=== PATIENT | male | born 1995 | race Caucasian/White ===

== ENCOUNTER 2018-06-21 20:39 | Emergency (ER) | payer BC, OTHER ==
--- NOTE | 2018-06-21 20:44 | PDOC ---
Rapid Medical Evaluation Time Seen by Provider: 06/21/18 20:43 Medical Evaluation: 06/21/18 20:43 I have performed a brief in-person evaluation of this patient. The patient presents with a chief complaint of: pleuritic chest pain Pertinent physical exam findings: Lungs CTAB. I have ordered the following: CXR The patient will proceed to the ED for further evaluation. Discharge Disposition - Diagnosis Pleuritic chest pain - Referrals - Patient Instructions - Post Discharge Activity
[2018-06-21 20:46] VITALS: BP 139/70; PULSE 114; TEMP 100.5; BMI 29.2
[2018-06-21] MEDS ORDERED: ACETAMINOPHEN 500 MG TABLET (FP) PO ONE (20:55)
[2018-06-21] MEDS ORDERED: ACETAMINOPHEN 500 MG TABLET (FP) ONE (20:58)
--- NOTE | 2018-06-21 21:14 | PDOC ---
History of Present Illness - General Chief Complaint: Cold Symptoms Stated Complaint: FLU/ASTHMA Time Seen by Provider: 06/21/18 20:43 - History of Present Illness Initial Comments: 06/21/18 21:07 23-year-old male without comorbidities presents for evaluation of cough. He was treated for influenza he is on the third day of a 5 day course of Tamiflu. His cough is getting worse he also has fever at home Past History - Past Medical History Allergies/Adverse Reactions: Allergies Allergy/AdvReac Type Severity Reaction Status Date / Time No Known Allergies Allergy Verified 06/21/18 20:46 Home Medications: Ambulatory Orders Azithromycin [Zithromax -] 250 mg PO UTDICT #6 tab 06/21/18 Methylprednisolone [Medrol Dose Bridger] 4 mg PO ASDIR #21 tablet 06/21/18 Asthma: Yes Cardiac Disorders: Yes COPD: No Other medical history: cyst - Suicide/Smoking/Psychosocial Hx Smoking History: Never smoked Have you smoked in the past 12 months: No Information on smoking cessation initiated: No Hx Alcohol Use: No Drug/Substance Use Hx: No Substance Use Type: None Review of Systems - Review of Systems Constitutional: Yes: Fever, Malaise, Night Sweats Respiratory: Yes: Cough *Physical Exam - Vital Signs Last Vital Signs Temp Pulse Resp BP Pulse Ox 100.5 F H 114 H 21 H 139/70 96 06/21/18 20:44 06/21/18 20:44 06/21/18 20:44 06/21/18 20:44 06/21/18 20:44 - Physical Exam Comments: 06/21/18 21:07 HEAD: NC/AT EYES: Conjuntiva clear NECK: Supple without adenopathy CARDIAC: S1 S2 LUNGS: Clear decreased breath sounds at the right base ABDOMEN: Soft NT ND MS: Full ROM in all joints without edema NEUROLOGIC: No gross sensory or motor deficits, NVID SKIN: Normal color and temperature no lesions or rashes ED Treatment Course - Medications Given in the ED: ED Medications Discontinued Medications Generic Name Dose Route Start Last Admin Trade Name Freq PRN Reason Stop Dose Admin Acetaminophen 1,000 mg 06/21/18 20:55 06/21/18 20:59 Tylenol - PO 06/21/18 20:56 1,000 mg ONCE ONE Administration Medical Decision Making - Medical Decision Making 06/21/18 21:08 Chest x-ray shows a right lower lobe infiltrate possibly left lower lobe infiltrate as well I will treat him for pneumonia cover mycoplasma with Zithromax and place him on a Medrol Dosepak. He can continue the Tamiflu as well *DC/Admit/Observation/Transfer Diagnosis at time of Disposition: Pneumonia Diagnosis at time of Disposition: (Ruled Out): Pleuritic chest pain - Discharge Dispostion Disposition: HOME Condition at time of disposition: Stable Decision to Admit order: No - Prescriptions Prescriptions: Azithromycin [Zithromax -] 250 mg PO UTDICT #6 tab Methylprednisolone [Medrol Dose Bridger] 4 mg PO ASDIR #21 tablet - Referrals Referrals: Tal Perdue MD [Staff Physician] - - Patient Instructions Printed Discharge Instructions: DI for Atypical Pneumonia, DI for Pneumonia -- Adult Additional Instructions: Continue to Tamiflu as directed. Take the antibiotics and the Medrol Dosepak as directed as well. Follow-up with pulmonology in 2-3 days for further evaluation and treatment options and return to the emergency room should symptoms worsen or go unresolved. Continue with Tylenol and Motrin for fever [id number] Robitussin-DM for cough - Post Discharge Activity
== END 2018-06-21 21:14 | disposition home or self-care (01) ==
LOC: JERFT 20:39
DX: J18.9 Pneumonia, unspecified organism (principal)
CPT/HCPCS: 71046-TC-FY; 99281-25

== ENCOUNTER 2018-06-26 15:13 | Emergency (ER) | payer BC, OTHER ==
--- NOTE | 2018-06-26 15:28 | PDOC ---
Rapid Medical Evaluation Chief Complaint: Cold Symptoms Time Seen by Provider: 06/26/18 15:23 Medical Evaluation: Allergies Allergy/AdvReac Type Severity Reaction Status Date / Time No Known Allergies Allergy Verified 06/21/18 20:46 06/26/18 15:24 Pt c/o: cough x 9 days, fever x 2 days last week, proph treated w/ lakia flu w/ out swab, hx asthma, sent by [facility] for cxr and nebulizers Pt on brief exam: LCTA , vss, noted dry hacking cough in triage Pt ordered for: cxr Pt to proceed to the ED 06/26/18 15:27 Discharge Disposition - Diagnosis Cough - Referrals - Patient Instructions - Post Discharge Activity
[2018-06-26 15:35] VITALS: BP 108/72; PULSE 93; TEMP 98.9; BMI 29.2
--- NOTE | 2018-06-26 17:15 | PDOC ---
History of Present Illness - General Chief Complaint: Cold Symptoms Stated Complaint: PCP SENT Time Seen by Provider: 06/26/18 15:23 History Source: Patient Exam Limitations: No Limitations - History of Present Illness Initial Comments: 06/26/18 18:37 Patient is a 23-year-old male with past medical history of asthma, who presents to the emergency department today for cough. Patient has been to the emergency department for similar symptoms over the past week. He was diagnosed with flu and pneumonia. Patient states he has finished his Tamiflu, azithromycin, and prednisone. He was sent over by his grievance coordinator for a repeat chest x-ray and DuoNeb treatments given that he is still coughing. Patient reports that his fevers resolved approximately 3 days ago. Admits to productive cough, shortness of breath. Denies chest pain, nausea, vomiting, lightheadedness, dizziness and fevers. Past History - Travel Traveled outside of the country in the last 30 days: No Close contact w/someone who was outside of country & ill: No - Past Medical History Allergies/Adverse Reactions: Allergies Allergy/AdvReac Type Severity Reaction Status Date / Time No Known Allergies Allergy Verified 06/21/18 20:46 Home Medications: Ambulatory Orders Azithromycin [Zithromax -] 250 mg PO UTDICT #6 tab 06/21/18 Methylprednisolone [Medrol Dose Bridger] 4 mg PO ASDIR #21 tablet 06/21/18 Guaifenesin AC [Robitussin AC] 10 ml PO Q4H #200 ud MDD 4 06/26/18 Methylprednisolone [Medrol Dose Bridger] 4 mg PO ASDIR #21 tablet 06/26/18 Spirometer/Drug Delivery Adapt [Mistassist Kit] 1 each MC Q1H #1 each 06/26/18 Asthma: Yes Cardiac Disorders: Yes COPD: No - Immunization History Immunization Up to Date: Yes - Suicide/Smoking/Psychosocial Hx Smoking History: Never smoked Have you smoked in the past 12 months: No Information on smoking cessation initiated: No Hx Alcohol Use: No Drug/Substance Use Hx: No Substance Use Type: None Review of Systems - Review of Systems Able to Perform ROS?: Yes Comments:: 06/26/18 18:38 CONSTITUTIONAL: Absent: fever, chills, diaphoresis, generalized weakness, malaise, loss of appetite HEENT: Absent: rhinorrhea, nasal congestion, throat pain, throat swelling, difficulty swallowing, mouth swelling, ear pain, eye pain, visual Changes CARDIOVASCULAR: Absent: chest pain, loss of consciousness, palpitations, irregular heart rate, peripheral edema RESPIRATORY: Present: cough, shortness of breath, wheezing Absent: dyspnea with exertion, orthopnea, stridor, hemoptysis GASTROINTESTINAL: Absent: abdominal pain, abdominal distension, nausea, vomiting, diarrhea, constipation, melena, hematochezia GENITOURINARY: Absent: dysuria, frequency, urgency, hesitancy, hematuria, flank pain, genital pain MUSCULOSKELETAL: Absent: myalgia, arthralgia, joint swelling SKIN: Absent: rash, itching, pallor HEMATOLOGIC/IMMUNOLOGIC: Absent: easy bleeding, easy bruising, lymphadenopathy, frequent infections ENDOCRINE: Absent: unexplained weight gain, unexplained weight loss, heat intolerance, cold intolerance NEUROLOGIC: Absent: headache, focal weakness or paresthesias, dizziness, unsteady gait, seizure, mental status changes, bladder or bowel incontinence PSYCHIATRIC: Absent: anxiety, depression, suicidal or homicidal ideation, hallucinations. Is the patient limited Ecuadorean proficient: No *Physical Exam - Vital Signs Last Vital Signs Temp Pulse Resp BP Pulse Ox 98.9 F 93 H 16 108/72 98 06/26/18 15:23 06/26/18 15:23 06/26/18 15:23 06/26/18 15:23 06/26/18 15:23 - Physical Exam Comments: 06/26/18 18:40 GENERAL: Well developed, well nourished. Awake and alert. No acute distress. HEENT: Normocephalic, atraumatic. PERRLA, EOMI. No conjunctival pallor. Sclera are non- icteric. Moist mucous membranes. Oropharynx is clear. NECK: Supple. Full ROM. No JVD. Carotid pulses 2+ and symmetric, without bruits. No thyromegaly. No lymphadenopathy. CARDIOVASCULAR: Regular rate and rhythm. No murmurs, rubs, or gallops. Distal pulses are 2+ and symmetric. PULMONARY: No evidence of respiratory distress. Lungs with crackles to the bases b/l. No wheezing, rales. ABDOMINAL: Soft. Non-tender. Non-distended. No rebound or guarding. No organomegaly. Normoactive bowel sounds. MUSCULOSKELETAL Normal range of motion at all joints. No bony deformities or tenderness. No CVA tenderness. EXTREMITIES: No cyanosis. No clubbing. No edema. No calf tenderness. SKIN: Warm and dry. Normal capillary refill. No rashes. No jaundice. NEUROLOGICAL: Alert, awake, appropriate. Cranial nerves 2-12 intact. No deficits to light touch and temperature in face, upper extremities and lower extremities. No motor deficits in the in face, upper extremities and lower extremities. Normoreflexic in the upper and lower extremities. Normal speech. Toes are down- going bilaterally. Gait is normal without ataxia. PSYCHIATRIC: Cooperative. Good eye contact. Appropriate mood and affect. ED Treatment Course - RADIOLOGY Radiology Studies Ordered: Category Date Time Status CHEST PA & LAT [RAD] Stat Radiology 06/26/18 16:37 Taken Medical Decision Making - Medical Decision Making 06/26/18 18:40 Patient is a 23-year-old male with past medical history of asthma who presents with known pneumonia and influenza; patient main complaint today is that he has been coughing. -Patient evaluated by his grievance coordinator today who recommended coming to the ER for repeat chest x-ray. -Wet read of chest x-ray shows improvement to the right lower lobe and left lower lobe pneumonias. -Patient given steroids and DuoNeb's in the emergency department. -Repeat lung exam with some improvement the bases. -Will prescribe another round of steroids. We'll also give medication for cough. -Patient is afebrile vital signs are stable, oxygen saturation is 98%. Given the patient has been afebrile for 72 hours we'll defer further antibiotic treatment at this time. -Patient instructed to follow-up with his grievance coordinator. We'll discharge home -I discussed the physical exam findings, ancillary test results and final diagnoses with the patient. I answered all of the patient's questions. The patient was satisfied with the care received and felt comfortable with the discharge plan and treatment plan. The Patient agrees to follow up with the primary care physician/specialist within 24-72 hours. Return precautions were given. *DC/Admit/Observation/Transfer Diagnosis at time of Disposition: Cough Pneumonia Qualifiers: Pneumonia type: due to unspecified organism Laterality: right Lung location: lower lobe of lung Qualified Code(s): J18.1 - Lobar pneumonia, unspecified organism - Discharge Dispostion Disposition: HOME Condition at time of disposition: Stable Decision to Admit order: No - Referrals Referrals: Tal Perdue MD [Staff Physician] - - Patient Instructions Printed Discharge Instructions: DI for Pneumonia -- Adult Additional Instructions: Your chest x-ray has improved since 06/22/18. Your pneumonia is resolving. Please use one more steroid taper. Follow the dosing instructions on the package. Your prescribed Robitussin with codeine. Do not drink or drive after taking this medication as it may make you sleepy. Please use the incentive spirometer every hour to help you take deep breaths. Please follow up with her grievance coordinator this week. Return to the emergency department for increased difficulty breathing, shortness of breath, fever, or if you have any changes in your symptoms. - Post Discharge Activity
[2018-06-26] MEDS ORDERED: DEXAMETHASONE 4 MG TABLET (FP) PO ONE (17:16)
[2018-06-26] MEDS ORDERED: DEXAMETHASONE SOD PHOSPHATE 10 MG/1 ML VIAL ONE (17:18)
[2018-06-26] MEDS ORDERED: ALBUTEROL SO4 2.5/IPRATROPIUM 0.5 INH SOL 3 ML VIAL.NEB. NEB ONE ×3 (17:18→17:48)
[2018-06-26] MEDS: ALBUTEROL SO4 2.5/IPRATROPIUM 0.5 INH SOL 3 ML VIAL.NEB. NEB SCH ×4 (17:21→18:34)
== END 2018-06-26 18:56 | disposition home or self-care (01) ==
LOC: JERFT 15:13
PROC: 3E0F7GC Introduction of Other Therapeutic Substance into Respiratory Tract, Via Natural or Artificial Opening (ICD-10-PCS; principal; 2018-06-26)
DX: J18.1 Lobar pneumonia, unspecified organism (principal)
CPT/HCPCS: 71046-TC-FY; 99281-25

== ENCOUNTER 2018-06-27 11:03 | Emergency (ER) | payer BC, OTHER ==
[2018-06-27 11:11] VITALS: BP 137/71; PULSE 110; TEMP 98.2; BMI 29.2
--- NOTE | 2018-06-27 11:46 | PDOC ---
History of Present Illness - General Chief Complaint: Respiratory Stated Complaint: COUGH Time Seen by Provider: 06/27/18 11:28 History Source: Patient Exam Limitations: Clinical Condition - History of Present Illness Initial Comments: 06/27/18 11:41 Patient with no sig PMhx recalled for chest CT s/p being sent by PCP yesterday for follow-up chest x-ray after being treated for pneumonia. chest x-rays done yesterday shows improvement in infiltrate but found promininent in hilum and radiologist recommended chest CT. patient report persistent cough with SOB when he lays down flat. mother report patient has been taking prescribed prednisone and had nebulizer treatment few mins prior to arrival. Denies denies CP, dizziness, sweats, fever, chills, N/V Timing/Duration: 1 week Past History - Past Medical History Allergies/Adverse Reactions: Allergies Allergy/AdvReac Type Severity Reaction Status Date / Time No Known Allergies Allergy Verified 06/21/18 20:46 Home Medications: Ambulatory Orders Azithromycin [Zithromax -] 250 mg PO UTDICT #6 tab 06/21/18 Methylprednisolone [Medrol Dose Bridger] 4 mg PO ASDIR #21 tablet 06/21/18 Guaifenesin AC [Robitussin AC] 10 ml PO Q4H #200 ud MDD 4 06/26/18 Methylprednisolone [Medrol Dose Bridger] 4 mg PO ASDIR #21 tablet 06/26/18 Spirometer/Drug Delivery Adapt [Mistassist Kit] 1 each MC Q1H #1 each 06/26/18 Benzonatate [Tessalon Pearls -] 100 mg PO TID PRN #21 capsule 06/27/18 levoFLOXacin [Levaquin] 750 mg PO DAILY #7 tab 06/27/18 Asthma: Yes Cardiac Disorders: Yes COPD: No - Immunization History Immunization Up to Date: Yes - Suicide/Smoking/Psychosocial Hx Smoking History: Never smoked Have you smoked in the past 12 months: No Hx Alcohol Use: No Drug/Substance Use Hx: No Substance Use Type: None Review of Systems - Review of Systems Able to Perform ROS?: Yes Is the patient limited Vietnamese proficient: No Constitutional: No: Chills, Fever, Malaise, Night Sweats, Weakness HEENTM: Yes: Symptoms Reported, See HPI, Nose Congestion. No: Eye Pain, Blurred Vision, Tearing, Recent change in vision, Double Vision, Cataracts, Ear Pain, Ocular Prothesis, Ear Discharge, Nose Pain, Tinnitus, Nose Bleeding, Hearing Loss, Throat Pain, Throat Swelling, Mouth Pain, Dental Problems, Difficulty Swallowing, Mouth Swelling, Other Respiratory: Yes: Symptoms reported, See HPI, Cough, Shortness of Breath, Productive cough. No: Orthopnea, SOB with Exertion, SOB at Rest, Stridor, Wheezing, Hemoptysis, Other Cardiac (ROS): No: Symptoms Reported, See HPI, Chest Pain, Edema, Irregular Heart Rate, Lightheadedness, Palpitations, Syncope, Chest Tightness, Other ABD/GI: No: Symptoms Reported, See HPI, Abdominal Distended, Abd. Pain w/ defecation, Blood Streaked Bowels, Constipated, Diarrhea, Difficulty Swallowing , Nausea, Poor Appetite, Poor Fluid Intake, Rectal Bleeding, Vomiting, Indigestion, Abdominal cramping, Tarry Stools, Other Neurological: No: Weakness, Dizziness All Other Systems: Reviewed and Negative *Physical Exam - Vital Signs Last Vital Signs Temp Pulse Resp BP Pulse Ox 98.2 F 110 H 16 137/71 95 06/27/18 11:08 06/27/18 11:08 06/27/18 11:08 06/27/18 11:08 06/27/18 11:08 - Physical Exam General Appearance: Yes: Nourished, Appropriately Dressed. No: Apparent Distress HEENT: positive: EOMI, ANGEL, Normal ENT Inspection, Normal Voice, Symmetrical, TMs Normal, Pharynx Normal Neck: positive: Supple. negative: Tender Respiratory/Chest: positive: Wheezing (moderate diffused wheezing). negative: Chest Tender, Respiratory Distress, Accessory Muscle Use, Rales, Rhonchi ( ), Stridor Cardiovascular: positive: Regular Rhythm, Regular Rate. negative: Murmur, Gallop/S3, Gallop/S4 Gastrointestinal/Abdominal: positive: Normal Bowel Sounds, Flat, Soft. negative : Tender, Organomegaly Musculoskeletal: positive: Normal Inspection Extremity: positive: Normal Inspection Integumentary: positive: Normal Color Neurologic: positive: Fully Oriented, Alert, Normal Mood/Affect, Normal Response Moderate Sedation - Procedure Monitoring Vital Signs: Procedure Monitoring Vital Signs Temperature 98.2 F 06/27/18 11:08 Pulse Rate 110 H 06/27/18 11:08 Respiratory Rate 16 06/27/18 11:08 Blood Pressure 137/71 06/27/18 11:08 O2 Sat by Pulse Oximetry (%) 95 06/27/18 11:08 ED Treatment Course - LABORATORY CBC & Chemistry Diagram: 06/27/18 11:55 06/27/18 11:55 - RADIOLOGY Radiology Studies Ordered: Category Date Time Status CHEST CTA [CT] Stat CT Scan 06/27/18 11:38 Ordered Medical Decision Making - Medical Decision Making 06/27/18 12:45 Patient with h/o pneumonia now s/p 5 days course of zpak Abx recalled for chest CT s/p presenting for follow-up post ABx tx with mild hilum prominence on new CXR. exam significant for persistent cough and moderately diffused wheezing. CBC shows mild elevated WBC which could be attributed to prednisone tx otherwise labs unremarkable. chemistry shows no acute findings. troponins negative. duoneb with albuterol/atrovent given. chest CTA ordered. pt afebrile now. treat based on chest CT results 06/27/18 15:49 chest CTA shows persistent right lower infiltrate . no evidence of PE on CT. multiple attempts done to contact pulmonology Dr. perdue with no call back. pt wishes to go home and will be discharged on levaquin 7 days course and incentive spirometry if no answer from Dr. Perdue *DC/Admit/Observation/Transfer Diagnosis at time of Disposition: Cough Pneumonia Qualifiers: Pneumonia type: due to unspecified organism Laterality: right Lung location: lower lobe of lung Qualified Code(s): J18.1 - Lobar pneumonia, unspecified organism - Discharge Dispostion Disposition: HOME Condition at time of disposition: Stable Decision to Admit order: No - Prescriptions Prescriptions: Benzonatate [Tessalon Pearls -] 100 mg PO TID PRN #21 capsule PRN Reason: Cough levoFLOXacin [Levaquin] 750 mg PO DAILY #7 tab - Referrals Referrals: Tal Perdue MD [Staff Physician] - - Patient Instructions Printed Discharge Instructions: DI for Pneumonia -- Adult Additional Instructions: take medications as prescribed and finish antibiotics. use incentive spirometry as directed. follow-up with pulmonolgy Dr. Perdue in the next few days for reassessment. come back to ER if worsening shortness of breathe, fever, weakness , dizziness or worsening cough - Post Discharge Activity Forms/Work/School Notes: Back to School
[2018-06-27] MEDS ORDERED: ALBUTEROL SO4 2.5/IPRATROPIUM 0.5 INH SOL 3 ML VIAL.NEB. NEB ONE ×2 (11:53→11:58)
--- NOTE | 2018-06-27 12:20 | PDOC ---
*Physical Exam - Vital Signs Last Vital Signs Temp Pulse Resp BP Pulse Ox 98.2 F 110 H 16 137/71 95 06/27/18 11:08 06/27/18 11:08 06/27/18 11:08 06/27/18 11:08 06/27/18 11:08 <Noelle Pollock - Last Filed: 06/27/18 15:26> - Vital Signs Last Vital Signs Temp Pulse Resp BP Pulse Ox 98.2 F 110 H 16 137/71 95 06/27/18 11:08 06/27/18 11:08 06/27/18 11:08 06/27/18 11:08 06/27/18 11:08 - Physical Exam Comments: 06/27/18 12:14 O2 sat 95% on room air Course breath sounds at the bases with expiratory wheezing b/l heart regular without murmur no leg edema/calf ttp <Bora Sosa - Last Filed: 06/27/18 16:33> Heart Score/ECG Review #1 ECG reviewed & interpreted by me at: 11:47 General ECG Interpretation: Sinus Rhythm, Normal Rate (88), Normal Intervals ( qtc 428, IRBBB), No acute ischemic changes <Bora Sosa - Last Filed: 06/27/18 16:33> ED Treatment Course - LABORATORY CBC & Chemistry Diagram: 06/27/18 11:55 06/27/18 11:55 - ADDITIONAL ORDERS Additional order review: Laboratory Results 06/27/18 11:55 Sodium 138 Potassium 4.2 Chloride 101 Carbon Dioxide 30 Anion Gap 7 L BUN 16 Creatinine 1.1 Creat Clearance w eGFR > 60 Random Glucose 105 Calcium 9.3 Total Bilirubin 0.6 AST 20 ALT 45 Alkaline Phosphatase 57 Creatine Kinase 211 Creatine Kinase Index 0.4 CK-MB (CK-2) < 1.0 Troponin I < 0.02 Total Protein 7.6 Albumin 3.8 06/27/18 11:55 RBC 5.48 MCV 85.9 MCHC 31.7 L RDW 14.5 MPV 8.5 Neutrophils % 74.2 Lymphocytes % 13.9 Monocytes % 11.2 H Eosinophils % 0.4 Basophils % 0.3 - Medications Given in the ED: ED Medications Discontinued Medications Generic Name Dose Route Start Last Admin Trade Name Freq PRN Reason Stop Dose Admin Albuterol/Ipratropium 1 amp 06/27/18 11:53 06/27/18 12:00 Duoneb - NEB 06/27/18 11:54 1 amp ONCE ONE Administration <Noelle Pollock - Last Filed: 06/27/18 15:26> - LABORATORY CBC & Chemistry Diagram: 06/27/18 11:55 06/27/18 11:55 - Medications Given in the ED: ED Medications Discontinued Medications Generic Name Dose Route Start Last Admin Trade Name [place] PRN Reason Stop Dose Admin Albuterol/Ipratropium 1 amp 06/27/18 11:53 06/27/18 12:00 Duoneb - NEB 06/27/18 11:54 1 amp ONCE ONE Administration <Bora Sosa - Last Filed: 06/27/18 16:33> Medical Decision Making - Medical Decision Making 06/27/18 15:[address] Perdue's office, message left, awaiting call back. 15:26 Second call placed to Dr. Perdue's office, made aware he is not in the office , awaiting call back. <Noelle Pollock - Last Filed: 06/27/18 15:26> - Medical Decision Making 06/27/18 12:16 Healthy 23-year-old male with history of mild intermittent asthma presents with 10 days of persistent cough with dyspnea, initially with infectious symptoms of fever/chills/night sweats. Patient initially treated with course of Tamiflu without improvement, no swab was sent at the time. He was seen here on 06/21 and treated with nebulizers and steroids and a Z-Bridger with only slight improvement, chest x-ray at that time showed some cardiomegaly, but a follow-up chest x-ray performed yesterday in the ED after referred by Dr. Gross was within normal limits except for hilar fullness, discharged yesterday on second course of steroids. CXR formally read today as possible basilar haziness, called back for CT. exam as noted. presentation seems most consistent with infectious process (? flu, ? pna) with persistent reactive airway. check labs, ekg cta chest - also r/o PE nebs reassess, discuss with [facility] 06/27/18 16:32 labs wnl, CT chest shows no PE but + RLL consolidation consistent with acute pna. calls place to Dr. Perdue, unable to discuss case but arranged prompt f/u with office. given HD stable, no resp distress or need for supplemental O2, and otherwise healthy, candidate for outpt treatment. will switch to levaquin course given completed azithro, understands strict return criteria, has f/u with [facility]. <Bora Sosa - Last Filed: 06/27/18 16:33> *DC/Admit/Observation/Transfer - Attestations Scribe Attestion: 06/27/18 15:02 Documentation prepared by Noelle Pollock, acting as durable medical equipment repairer for Bora Sosa MD. <Noelle Pollock - Last Filed: 06/27/18 15:26> <Bora Sosa - Last Filed: 06/27/18 16:33> Diagnosis at time of Disposition: Cough, Pneumonia - Discharge Dispostion Disposition: HOME Condition at time of disposition: Stable - Prescriptions Prescriptions: Benzonatate [Tessalon Pearls -] 100 mg PO TID PRN #21 capsule PRN Reason: Cough levoFLOXacin [Levaquin] 750 mg PO DAILY #7 tab - Referrals Referrals: Tal Perdue MD [Staff Physician] - - Patient Instructions Printed Discharge Instructions: DI for Pneumonia -- Adult Additional Instructions: take medications as prescribed and finish antibiotics. use incentive spirometry as directed. follow-up with pulmonolgy Dr. Perdue in the next few days for reassessment. come back to ER if worsening shortness of breathe, fever, weakness , dizziness or worsening cough - Post Discharge Activity Forms/Work/School Notes: Back to School
[2018-06-27 12:30] LABS: ALBUMIN 3.8 g/dl (3.4-5.0); ALK PHOS 57 U/L (45-117); ANION GAP 7 MMOL/L (8-16); BILIRUBIN,TOTAL 0.6 mg/dL (0.2-1); BLOOD UREA NITROGEN 16 mg/dL (7-18); CALCIUM 9.3 mg/dL (8.5-10.1); CHLORIDE 101 mmol/L (98-107); CO2 30 mmol/L (21-32); CREATININE 1.1 mg/dL (0.55-1.3); GLUCOSE,RANDOM 105 mg/dL (74-106); POTASSIUM 4.2 mmol/L (3.5-5.1); SGOT/AST 20 U/L (15-37); SGPT/ALT 45 U/L (13-61); SODIUM 138 mmol/L (136-145); TOT PROT 7.6 g/dl (6.4-8.2)
[2018-06-27 12:34] LABS: BASO % 0.3 % (0-2.0); EOS % 0.4 % (0-4.5); HEMATOCRIT 47.1 % (35.4-49); HEMOGLOBIN 14.9 GM/dL (11.7-16.9); LYMPH % 13.9 % (8-40); MCH 27.2 pg (25.7-33.7); MCHC 31.7 g/dl (32.0-35.9); MEAN CELL VOLUME 85.9 fl (80-96); MEAN PLT VOLUME 8.5 fl (7.5-11.1); MONO % 11.2 % (3.8-10.2); NEUT % 74.2 % (42.8-82.8); PLATELET COUNT 407 K/MM3 (134-434); RBC 5.48 M/mm3 (4.00-5.60); RDW 14.5 % (11.9-15.9); WHITE BLOOD COUNT 16.7 K/mm3 (4.0-10.0)
--- NOTE | 2018-06-27 14:16 | EKG ---
Test Reason : Blood Pressure : / mmHG Vent. Rate : 088 BPM Atrial Rate : 088 BPM P-R Int : 128 ms QRS Dur : 096 ms QT Int : 354 ms P-R-T Axes : 048 000 022 degrees QTc Int : 428 ms NORMAL SINUS RHYTHM POSSIBLE LEFT ATRIAL ENLARGEMENT POSSIBLE ANTERIOR INFARCT , AGE UNDETERMINED ABNORMAL ECG NO PREVIOUS ECGS AVAILABLE Confirmed by MD Mando, Seferino ([id number]) on 06/27/2018 2:15:40 PM Referred By: Confirmed By:Seferino Gilmore MD
== END 2018-06-27 16:27 | disposition home or self-care (01) ==
LOC: JER 11:03
PROC: 3E0F7GC Introduction of Other Therapeutic Substance into Respiratory Tract, Via Natural or Artificial Opening (ICD-10-PCS; principal; 2018-06-27)
DX: J18.1 Lobar pneumonia, unspecified organism (principal)
CPT/HCPCS: 36415; 71275-TC; 80053; 82550; 82553; 84484; 85025; 87804; 93005; 93010; 99282-25

== ENCOUNTER 2019-05-10 07:12 | Emergency (ER) | payer BC, OTHER ==
[2019-05-10 07:16] VITALS: BP 115/57; PULSE 69; TEMP 98.5; BMI 24.0
--- NOTE | 2019-05-10 07:47 | PDOC ---
History of Present Illness - General Chief Complaint: Ear Problem Stated Complaint: RIGHT EAR CLOGGED Time Seen by Provider: 05/10/19 07:43 - History of Present Illness Initial Comments: 05/10/19 07:43 Chief complaint: Clogged right ear HPI: Patient feels his right ear is clogged and there is decreased hearing. He has no pain. No URI symptoms Review of systems: No fever/chills or other constitutional symptoms. No URI symptoms. No cough, chest pain, shortness of breath Past medical history: Healthy male with no active medical or surgical problems at present Social/family history reviewed and noncontributory Physical exam: Alert and oriented no acute distress cooperative Afebrile, vital signs normal Right ear: There is a cerumen impaction. Left ear is clear. Conjunctivae, throat clear. Neck supple without bruit mass or nodes Chest clear full breath sounds bilaterally no wheezes rales or rhonchi CV regular without murmur rub or gallop Abdomen benign Neurological shows hearing is grossly intact in both ears. Cranial nerves are intact. No focal deficits. Gait stable and unimpaired Impression: Cerumen impaction Plan: It was gently irrigated with warm water peroxide mixture 50-50 and cerumen was dissolved and removed. Patient's hearing improved and his sensation of clogging resolved. There was some mild erythema of the ear canal for which antibiotic eardrops were prescribed and the patient was referred to ENT if he experiences further problems. Fully ambulatory and in no distress at discharge. Past History - Past Medical History Allergies/Adverse Reactions: Allergies Allergy/AdvReac Type Severity Reaction Status Date / Time No Known Allergies Allergy Verified 05/10/19 07:13 Home Medications: Ambulatory Orders Neomycin/Polymyxn/Hc [Cortisporin Otic Solution -] 3 drop AD Q4HWA #1 bottle 05/19 Asthma: Yes Cardiac Disorders: Yes COPD: No - Surgical History Cardiac Surgery: Yes (COARTATION AORTA) - Immunization History Immunization Up to Date: Yes - Psycho Social/Smoking Cessation Hx Smoking History: Never smoked Have you smoked in the past 12 months: No Hx Alcohol Use: Yes (WEEKENDS) Drug/Substance Use Hx: No Substance Use Type: None *Physical Exam - Vital Signs Last Vital Signs Temp Pulse Resp BP Pulse Ox 98.5 F 69 16 115/57 L 98 05/10/19 07:13 05/10/19 07:13 05/10/19 07:13 05/10/19 07:13 05/10/19 07:13 Discharge - Discharge Information Problems reviewed: Yes Clinical Impression/Diagnosis: Impacted cerumen of right ear Condition: Improved Disposition: HOME - Admission No - Additional Discharge Information Prescriptions: Neomycin/Polymyxn/Hc [Cortisporin Otic Solution -] 3 drop AD Q4HWA #1 bottle - Follow up/Referral Referrals: Philip Murray MD [Staff Physician] - - Patient Discharge Instructions Patient Printed Discharge Instructions: DI for Cerumen Impaction Additional Instructions: Continue eardrops as directed for 2 or 3 days. If there is any pain, drainage, or other symptoms, see ENT specialist as directed. - Post Discharge Activity
== END 2019-05-10 07:59 | disposition home or self-care (01) ==
LOC: FER 07:12
PROC: 3E1B78Z Irrigation of Ear using Irrigating Substance, Via Natural or Artificial Opening (ICD-10-PCS; principal; 2019-05-10)
DX: H61.21 Impacted cerumen, right ear (principal)
CPT/HCPCS: 99282-25

== ENCOUNTER 2021-07-07 20:11 | Emergency (ER) | payer OTHER ==
[2021-07-07 20:20] VITALS: BP 121/78; PULSE 95; TEMP 98.4; BMI 32.5
[2021-07-07] MEDS ORDERED: METHOCARBAMOL 500 MG TABLET ONE (20:55)
[2021-07-07] MEDS ORDERED: METHOCARBAMOL 500 MG TABLET PO ONE (20:55)
[2021-07-07] MEDS ORDERED: KETOROLAC TROMETHAMINE 30 MG/1 ML VIAL ONE (20:55)
[2021-07-07] MEDS ORDERED: KETOROLAC TROMETHAMINE 30 MG/1 ML VIAL IM ONE (20:55)
== END 2021-07-07 22:15 | disposition home or self-care (01) ==
LOC: JER 20:11
PROC: 3E0233Z Introduction of Anti-inflammatory into Muscle, Percutaneous Approach (ICD-10-PCS; principal; 2021-07-07)
DX: M62.838 Other muscle spasm (principal)
CPT/HCPCS: 93971-TC; 99284-25

== ENCOUNTER 2021-07-11 12:10 | Inpatient (IN) | payer OTHER ==
[2021-07-11] MEDS ORDERED: diazePAM 5 MG TABLET PO ONE (12:54)
[2021-07-11] MEDS ORDERED: SODIUM CHLORIDE 0.9% 500 ML INFUS.BAG IV ONE (12:55)
[2021-07-11] MEDS ORDERED: morphine CARPU-JECT 2 MG/1 ML DISP.SYRIN IVPUSH ONE ×2 (12:55→20:46)
[2021-07-11] MEDS ORDERED: morphine SULFATE 4 MG/ML VIAL ONE ×3 (13:09→20:50)
[2021-07-11] MEDS ORDERED: diazePAM 5 MG TABLET ONE (13:10)
[2021-07-11 13:53] LABS: ALBUMIN 4.3 g/dl (3.4-5.0); CALCIUM 9.5 mg/dl (8.5-10); TOT PROT 7.9 g/dl (6.4-8.2)
[2021-07-11] MEDS ORDERED: KETOROLAC TROMETHAMINE 15 MG/ML VIAL IVPUSH ONE (14:29)
[2021-07-11] MEDS ORDERED: KETOROLAC TROMETHAMINE 15 MG/ML VIAL ONE (14:32)
[2021-07-11] MEDS ORDERED: ENOXAPARIN NA (PORCINE) 80 MG/0.8 ML DISP.SYRIN SQ ONE (15:33)
[2021-07-11] MEDS ORDERED: ENOXAPARIN NA (PORCINE) 100 MG/1 ML DISP.SYRIN SQ ONE (15:49)
[2021-07-11 16:08] LABS: HEMOGLOBIN 14.5 GM/dL (11.7-16.9)
[2021-07-11 16:10] LABS: BASO % 0.7 % (0-2.0); EOS % 1.6 % (0-4.5); HEMATOCRIT 43.7 % (35.4-49); LYMPH % 16.2 % (8-40); MCH 28.3 pg (25.7-33.7); MCHC 33.1 g/dl (32.0-35.9); MEAN CELL VOLUME 85.4 fl (80-96); MEAN PLT VOLUME 9.1 fl (7.5-11.1); MONO % 11.4 % (3.8-10.2); NEUT % 70.1 % (42.8-82.8); PLATELET COUNT 310 10^3/uL (134-434); RBC 5.12 M/mm3 (4.00-5.60); RDW 13.2 % (11.9-15.9); WHITE BLOOD COUNT 12.6 K/mm3 (4.0-10.0)
[2021-07-11 16:50] LABS: ACTIVATED PTT 31.8 SECONDS (25.2-36.5)
[2021-07-11 16:54] LABS: INR 1.35 (0.82-1.09)
[2021-07-11 17:27] LABS: ANISOCYTOSIS 2+
[2021-07-11 17:28] LABS: PLATELET ESTIMATE ADEQUATE
[2021-07-11] MEDS ORDERED: HEPARIN NA (PORCINE) 5,000 UNITS/ML 1ML VIAL IVPUSH ONE (18:05)
[2021-07-11] MEDS ORDERED: HEPARIN - 25,000 UNIT in SODIUM CHLORIDE 495 ML IV SCH (18:15)
[2021-07-11] MEDS ORDERED: HEPARIN NA (PORCINE) 5,000 UNITS/ML 1ML VIAL ONE (18:28)
[2021-07-11] MEDS ORDERED: HEPARIN INFUSION - 25,000 UNITS/500 ML INFUS.BAG IVPB ONE (18:29)
[2021-07-11] MEDS: HEPARIN INFUSION - 25,000 UNITS/500 ML INFUS.BAG IVPB SCH (18:45)
[2021-07-11] MEDS ORDERED: morphine CARPU-JECT 4 MG/1 ML DISP.SYRIN IVPUSH ONE (18:49)
[2021-07-11] MEDS ORDERED: DEXTROSE 5%-NORMAL SALINE 1,000 ML IV SCH (20:00)
[2021-07-11] MEDS ORDERED: POLYETHYLENE GLYCOL 3350 119 GM BTL PO PRN (20:00)
[2021-07-11] MEDS ORDERED: PANTOPRAZOLE SODIUM 40 MG VIAL IVPUSH ONE (20:09)
[2021-07-11] MEDS ORDERED: PANTOPRAZOLE SODIUM 40 MG VIAL ONE (20:51)
[2021-07-11] MEDS ORDERED: morphine SULFATE 4 MG/ML VIAL IVPUSH PRN (23:56)
[2021-07-12] MEDS ORDERED: morphine SULFATE 4 MG/ML VIAL ONE (01:00)
[2021-07-12] MEDS ORDERED: HEPARIN NA (PORCINE) 5,000 UNITS/ML 1ML VIAL ONE (10:57)
[2021-07-12] MEDS ORDERED: LIDOCAINE HCL 1%, 10 MG/ML (20ML VIAL) ONE (10:57)
[2021-07-12] MEDS ORDERED: LIDOCAINE HCL 1%, 10 MG/ML (20ML VIAL) INF ONE (11:00)
[2021-07-12] MEDS ORDERED: ALTEPLASE (CATHFLO) 2 MG/2 ML VIAL CVP ONE ×2 (11:00→12:00)
[2021-07-12] MEDS ORDERED: PROPOFOL 20 ML ONE ×2 (11:10→12:20)
[2021-07-12] MEDS ORDERED: fentaNYL CITRATE 250 MCG/5 ML VIAL ONE (11:10)
[2021-07-12] MEDS ORDERED: MIDAZOLAM HCL 2 MG/2 ML SINGLE DOSE VIAL ONE ×2 (11:10→11:48)
[2021-07-12] MEDS ORDERED: PROMETHAZINE HCL 25 MG/1 ML VIAL IVPUSH PRN (11:50)
[2021-07-12] MEDS ORDERED: ONDANSETRON 4 MG/2 ML VIAL IVPUSH PRN (11:50)
[2021-07-12] MEDS ORDERED: KETAMINE HCL 200 MG/20 ML VIAL ONE (11:59)
[2021-07-12] MEDS ORDERED: LACTATED RINGERS SOLUTION 1,000 ML IV SCH (12:00)
[2021-07-12] MEDS ORDERED: HEPARIN NA (PORCINE) PF 1,000 UNITS/ML - 2ML VIAL IVPB ONE (12:00)
[2021-07-12] MEDS ORDERED: HEPARIN NA (PORCINE) 5,000 UNITS/ML 1ML VIAL IV ONE (12:00)
[2021-07-12] MEDS: PANTOPRAZOLE 40 MG TABLET PO SCH (15:21)
[2021-07-12] MEDS: ACETAMINOPHEN 1000 MG/100 ML BAG IVPB PRN ×2 (17:00→23:07)
[2021-07-12 18:05] LABS: BLOOD UREA NITROGEN 12.9 mg/dL (7-18); CREATININE 1.1 mg/dL (0.55-1.3)
[2021-07-12] MEDS: MUPIROCIN 2% TOPICAL OINTMENT FOR DECOLONIZATION NS SCH (23:02)
[2021-07-12] MEDS: HEPARIN INFUSION - 25,000 UNITS/500 ML INFUS.BAG IVPB SCH (23:03)
[2021-07-12] MEDS: CHLORHEXIDINE GLUCONATE 4% CLEANSER FOR DECOLONIZATION TP SCH (23:04)
[2021-07-12] MEDS ORDERED: HEPARIN NA (PORCINE) 5,000 UNITS/ML 1ML VIAL IVPUSH PRN ×2 (23:38)
[2021-07-13 07:30] LABS: BASO % 0.6 % (0-2.0); EOS % 2.4 % (0-4.5); HEMOGLOBIN 13.1 GM/dL (11.7-16.9); LYMPH % 21.6 % (8-40); MCH 28.3 pg (25.7-33.7); MCHC 33.6 g/dl (32.0-35.9); MEAN CELL VOLUME 84.4 fl (80-96); MEAN PLT VOLUME 8.6 fl (7.5-11.1); MONO % 12.9 % (3.8-10.2); NEUT % 62.5 % (42.8-82.8); PLATELET COUNT 271 10^3/uL (134-434); RBC 4.63 M/mm3 (4.00-5.60); RDW 13.5 % (11.9-15.9); WHITE BLOOD COUNT 10.9 K/mm3 (4.0-10.0)
[2021-07-13 08:01] LABS: BLOOD UREA NITROGEN 10.6 mg/dL (7-18)
[2021-07-13 08:04] LABS: CALCIUM 8.5 mg/dL (8.5-10.1); CREATININE 0.9 mg/dL (0.55-1.3); PHOSPHOROUS 3.6 mg/dL (2.5-4.9)
[2021-07-13] MEDS: MUPIROCIN 2% TOPICAL OINTMENT FOR DECOLONIZATION NS SCH ×2 (10:30→21:25)
[2021-07-13] MEDS: PANTOPRAZOLE 40 MG TABLET PO SCH (10:30)
[2021-07-13] MEDS: ACETAMINOPHEN 1000 MG/100 ML BAG IVPB PRN ×2 (14:57→21:24)
[2021-07-13] MEDS: ENOXAPARIN NA (PORCINE) 100 MG/1 ML DISP.SYRIN SQ SCH (21:24)
[2021-07-13] MEDS: CHLORHEXIDINE GLUCONATE 4% CLEANSER FOR DECOLONIZATION TP SCH (21:25)
[2021-07-14 08:19] LABS: CALCIUM 9.2 mg/dL (8.5-10.1)
[2021-07-14 08:20] LABS: BLOOD UREA NITROGEN 11.2 mg/dL (7-18)
[2021-07-14 08:25] LABS: BILIRUBIN,TOTAL 0.6 mg/dL (0.2-1); TOT PROT 6.5 g/dl (6.4-8.2)
[2021-07-14 08:41] LABS: HEMATOCRIT 40.1 % (35.4-49); HEMOGLOBIN 13.3 GM/dL (11.7-16.9); MCH 28.4 pg (25.7-33.7); MCHC 33.2 g/dl (32.0-35.9); MEAN CELL VOLUME 85.6 fl (80-96); MEAN PLT VOLUME 8.5 fl (7.5-11.1); PLATELET COUNT 310 10^3/uL (134-434); RBC 4.69 M/mm3 (4.00-5.60); RDW 13.2 % (11.9-15.9); WHITE BLOOD COUNT 9.6 K/mm3 (4.0-10.0)
[2021-07-14] MEDS: MUPIROCIN 2% TOPICAL OINTMENT FOR DECOLONIZATION NS SCH ×2 (09:48→22:23)
[2021-07-14] MEDS: PANTOPRAZOLE 40 MG TABLET PO SCH (09:48)
[2021-07-14] MEDS: ENOXAPARIN NA (PORCINE) 100 MG/1 ML DISP.SYRIN SQ SCH ×2 (09:48→22:22)
[2021-07-14 11:15] VITALS: TEMP 98.5
[2021-07-14 12:47] VITALS: BMI 36.0
[2021-07-14 21:46] VITALS: BP 120/62; PULSE 103
[2021-07-14] MEDS: CHLORHEXIDINE GLUCONATE 4% CLEANSER FOR DECOLONIZATION TP SCH (22:23)
[2021-07-14] MEDS: ACETAMINOPHEN 1000 MG/100 ML BAG IVPB PRN (22:30)
[2021-07-15] MEDS ORDERED: MAG HYDROX/AL HYDROX/SIMETH 30 ML UNIT-DOSE CUP PO ONE (01:07)
[2021-07-15] MEDS ORDERED: PT OWN MED DRAWER 7, Y5N ONE (01:17)
== END 2021-07-15 02:00 | disposition short-term general hospital (02) | DRG 169 ==
LOC: FER 12:10 → J6S 07-12 06:00 → JICU 07-12 14:44
PROVIDERS: ADMIT Family Medicine
PROC: 047C3ZZ Dilation of Right Common Iliac Artery, Percutaneous Approach (ICD-10-PCS; 2021-07-12)
PROC: 3E03317 Introduction of Other Thrombolytic into Peripheral Vein, Percutaneous Approach (ICD-10-PCS; 2021-07-12)
PROC: X2CU3T7 Extirpation of Matter from Right Lower Extremity Vein using Computer-aided Mechanical Aspiration, Percutaneous Approach, New Technology Group 7 (ICD-10-PCS; principal; 2021-07-12 10:00)
DX: I82.441 Acute embolism and thrombosis of right tibial vein (principal); D72.829 Elevated white blood cell count, unspecified; J45.909 Unspecified asthma, uncomplicated; I82.411 Acute embolism and thrombosis of right femoral vein; E66.9 Obesity, unspecified; Z68.36 Body mass index [BMI] 36.0-36.9, adult
CPT/HCPCS: 36415; 71275-TC; 74174-TC; 76000-TC-FY; 80048; 80053; 81240; 81241; 82550; 83735; 84100; 85025; 85027; 85610; 85730; 86022; 86769; 86850; 86900; 86901; 93971-TC; 94760; 99285-25; C9803; J0131; J1644; J2997; Q9967; U0003; U0005

== ENCOUNTER 2023-05-12 17:59 | Emergency (ER) | payer OTHER ==
[2023-05-12 18:13] VITALS: BP 103/75; PULSE 87; RESP 18; TEMP 98.2; BMI 33.3
== END 2023-05-12 19:05 | disposition home or self-care (01) ==
LOC: JER 17:59 → JERFT 17:59
DX: L72.0 Epidermal cyst (principal); L73.2 Hidradenitis suppurativa; R22.43 Localized swelling, mass and lump, lower limb, bilateral
CPT/HCPCS: 99283-25

== ENCOUNTER 2023-07-21 16:17 | Emergency (ER) | payer OTHER ==
[2023-07-21 16:40] VITALS: BP 117/69; PULSE 88; RESP 18; TEMP 98.4; BMI 38.7
[2023-07-21] MEDS ORDERED: METOCLOPRAMIDE HCL INJECTION 10 MG/2 ML VIAL IVPUSH ONE (17:22)
[2023-07-21] MEDS ORDERED: ACETAMINOPHEN 1000 MG/100 ML BAG IVPB ONE (17:22)
[2023-07-21] MEDS ORDERED: LACTATED RINGERS SOLUTION 1,000 ML/1,000 ML INFUS.BAG IV SCH (17:30)
[2023-07-21] MEDS ORDERED: ACETAMINOPHEN INJECTION 100 ML IVPB ONE (17:43)
[2023-07-21] MEDS ORDERED: METOCLOPRAMIDE HCL INJECTION 10 MG/2 ML VIAL ONE (17:43)
[2023-07-21 17:59] LABS: BASO % 0.8 % (0-2.0); EOS % 2.6 % (0-4.5); HEMOGLOBIN 15.4 GM/dL (11.7-16.9); LYMPH % 14.8 % (8-40); MCH 28.2 pg (25.7-33.7); MCHC 33.5 g/dl (32.0-35.9); MEAN CELL VOLUME 84.3 fl (80-96); MEAN PLT VOLUME 9.2 fl (7.5-11.1); MONO % 9.8 % (3.8-10.2); PLATELET COUNT 229 10^3/uL (134-434); RBC 5.45 M/mm3 (4.00-5.60); RDW 13.4 % (11.9-15.9); WHITE BLOOD COUNT 7.6 K/mm3 (4.0-10.0)
[2023-07-21 18:07] LABS: INR 1.05 (0.83-1.09); PROTHROMBIN TIME (PATIENT) 12.2 SEC (9.7-13.0)
[2023-07-21 18:09] LABS: ACTIVATED PTT 35.1 SECONDS (25.2-36.5)
[2023-07-21 18:18] LABS: CALCIUM 9.3 mg/dL (8.5-10.1)
[2023-07-21 18:19] LABS: ALBUMIN 4.3 g/dl (3.4-5.0); BLOOD UREA NITROGEN 12.8 mg/dL (7-18)
[2023-07-21 18:22] LABS: CREATININE 1.1 mg/dL (0.55-1.3)
[2023-07-21 18:23] LABS: BILIRUBIN,TOTAL 0.4 mg/dL (0.2-1); TOT PROT 7.7 g/dl (6.4-8.2)
== END 2023-07-21 19:18 | disposition home or self-care (01) ==
LOC: JER 16:17
PROC: 3E033NZ Introduction of Analgesics, Hypnotics, Sedatives into Peripheral Vein, Percutaneous Approach (ICD-10-PCS; principal; 2023-07-21)
PROC: 3E033GC Introduction of Other Therapeutic Substance into Peripheral Vein, Percutaneous Approach (ICD-10-PCS; 2023-07-21)
DX: G43.909 Migraine, unspecified, not intractable, without status migrainosus (principal); H53.149 Visual discomfort, unspecified
CPT/HCPCS: 36415; 70450-TC; 80053; 83735; 85025; 85610; 85730; 86850; 86900; 86901; 99284-25

== ENCOUNTER 2025-03-13 13:49 | Inpatient (IN) | payer OTHER ==
[2025-03-13] MEDS: SODIUM CHLORIDE 0.9% 500 ML INFUS.BAG IV ONE (14:30)
[2025-03-13] MEDS: ALBUTEROL SO4 2.5/IPRATROPIUM 0.5 INH SOL 3 ML VIAL.NEB. NEB SCH ×2 (15:00→19:11)
[2025-03-13] MEDS ORDERED: ACETAMINOPHEN INJECTION 100 ML ONE (15:08)
[2025-03-13] MEDS ORDERED: methylPREDNISolone NA SUCC 125 MG/2 ML VIAL ONE (15:08)
[2025-03-13] MEDS ORDERED: ALBUTEROL SO4 2.5/IPRATROPIUM 0.5 INH SOL 3 ML VIAL.NEB. NEB ONE ×2 (15:08→18:45)
[2025-03-13] MEDS: methylPREDNISolone NA SUCC 125 MG/2 ML VIAL IVPUSH ONE (15:10)
[2025-03-13] MEDS: ACETAMINOPHEN 1000 MG/100 ML BAG IVPB ONE (15:11)
[2025-03-13 15:45] LABS: ABSOLUTE IMMATURE GRANULOCYTES 0.02 x10^3/uL (0.0-0.031); BASOPHILS # 0.02 x10^3/uL (0.01-0.08); EOSINOPHIL % 0.0 % (0.8-7.0); EOSINOPHILS # 0.00 x10^3/uL (0.04-0.54); MCHC 32.0 g/dl (32.3-36.5); MEAN CELL VOLUME 87.2 fl (79.0-92.2); MEAN PLT VOLUME 11.0 fl (9.4-12.4); MONOCYTE # 0.99 x10^3/uL (0.30-0.82); MONOCYTE % 11.0 % (5.3-12.2); RDW 12.8 % (12.0-15.6)
[2025-03-13 15:52] LABS: INR 1.16 (0.83-1.09); PROTHROMBIN TIME (PATIENT) 12.9 SEC (9.7-13.0)
[2025-03-13 15:55] LABS: ACTIVATED PTT 32.7 SECONDS (25.2-36.5)
[2025-03-13 16:02] LABS: ALK PHOS 45 U/L (45-117); CO2 24 mmol/L (21-32); CREATININE 1.3 mg/dl (0.6-1.3); GLUCOSE,RANDOM 149 mg/dl (74-106); SGOT/AST 32 U/L (15-37); SGPT/ALT 48 U/L (7-52); TOT PROT 7.7 g/dl (6.4-8.2)
[2025-03-13 16:43] LABS: BG HCT 52.0 % (35.4-49); VENOUS BASE EXCESS -1.7 mmol/L (-2-2); VENOUS O2 SATURATION 90.4 % (70-80); VENOUS PCO2 39.6 mmHg (38-52); VENOUS PH 7.384 (7.310-7.410)
[2025-03-13 17:30] LABS: HCV DIAGNOSTIC IN-HOUSE W/RFLX NON-REACTIVE (NONREACTIVE); HIV INTERPRETATION NEGATIVE (NEGATIVE)
[2025-03-13] MEDS: ALBUTEROL SO4 2.5/IPRATROPIUM 0.5 INH SOL 3 ML VIAL.NEB. NEB ONE (18:20)
[2025-03-13] MEDS ORDERED: MAGNESIUM SULFATE IN WATER 2 GM/50 ML IVPB IVPB ONE (18:45)
[2025-03-13] MEDS ORDERED: AZITHROMYCIN 500 MG VIAL IVPB ONE (18:45)
[2025-03-13] MEDS: MAGNESIUM SULFATE IN WATER 2 GM/50 ML IVPB IVPB ONE (19:01)
[2025-03-13] MEDS: ACETAMINOPHEN 500 MG TABLET (FP) PO ONE (19:12)
[2025-03-13] MEDS: AZITHROMYCIN IVPB 500 MG in DEXTROSE 5%-WATER - 250 ML IVPB ONE (19:30)
[2025-03-13 20:42] VITALS: BMI 35.1
[2025-03-13 20:57] LABS: N-TERMINAL BNP 25.2 pg/mL (0-299.9)
[2025-03-13] MEDS: guaiFENesin/D-METHORPHAN HB 10 ML UNIT-DOSE CUPS PO PRN (21:38)
[2025-03-13] MEDS: APIXABAN 5 MG TABLET PO SCH (22:18)
[2025-03-14] MEDS: ALBUTEROL SO4 2.5/IPRATROPIUM 0.5 INH SOL 3 ML VIAL.NEB. NEB PRN (05:57)
[2025-03-14 08:05] LABS: ABSOLUTE IMMATURE GRANULOCYTES 0.03 x10^3/uL (0.0-0.031); BASOPHILS # 0.02 x10^3/uL (0.01-0.08); EOSINOPHIL % 0.0 % (0.8-7.0); EOSINOPHILS # 0.00 x10^3/uL (0.04-0.54); MCHC 31.4 g/dl (32.3-36.5); MEAN CELL VOLUME 87.8 fl (79.0-92.2); MEAN PLT VOLUME 11.6 fl (9.4-12.4); MONOCYTE # 0.71 x10^3/uL (0.30-0.82); MONOCYTE % 7.2 % (5.3-12.2); RDW 12.8 % (12.0-15.6)
[2025-03-14 09:04] LABS: CO2 25.0 mmol/L (21-32); CREATININE 0.9 mg/dl (0.6-1.3); GLUCOSE,RANDOM 129.0 mg/dl (74-106)
[2025-03-14] MEDS: CEFTRIAXONE 1 GM in DEXTROSE 5%-WATER - 50 ML IVPB SCH (09:31)
[2025-03-14] MEDS: AZITHROMYCIN IVPB 500 MG/250 ML BAG IVPB SCH (09:32)
[2025-03-14] MEDS: guaiFENesin/D-METHORPHAN HB 10 ML UNIT-DOSE CUPS PO PRN (12:44)
[2025-03-14] MEDS: methylPREDNISolone NA SUCC 125 MG/2 ML VIAL IVPUSH SCH (12:44)
[2025-03-14] MEDS: PANTOPRAZOLE 40 MG TABLET PO SCH (12:45)
[2025-03-14] MEDS: LORATADINE 10 MG TABLET PO SCH (12:45)
[2025-03-14] MEDS: FLUTICASONE PROP 0.05% 16 GM NASAL SPRAY NS SCH (12:45)
[2025-03-15 07:06] VITALS: RESP 18; TEMP 98.1
[2025-03-15 07:42] LABS: ABSOLUTE IMMATURE GRANULOCYTES 0.04 x10^3/uL (0.0-0.031); BASOPHILS # 0.02 x10^3/uL (0.01-0.08); EOSINOPHIL % 0.0 % (0.8-7.0); EOSINOPHILS # 0.00 x10^3/uL (0.04-0.54); MCHC 31.6 g/dl (32.3-36.5); MEAN CELL VOLUME 87.6 fl (79.0-92.2); MEAN PLT VOLUME 11.2 fl (9.4-12.4); MONOCYTE # 0.81 x10^3/uL (0.30-0.82); MONOCYTE % 6.6 % (5.3-12.2); RDW 12.9 % (12.0-15.6)
[2025-03-15 07:59] LABS: ALK PHOS 42.0 U/L (45-117); CO2 27.0 mmol/L (21-32); CREATININE 0.8 mg/dl (0.6-1.3); GLUCOSE,RANDOM 120.0 mg/dl (74-106); SGOT/AST 23.0 U/L (15-37); SGPT/ALT 36.0 U/L (7-52); TOT PROT 7.3 g/dl (6.4-8.2)
[2025-03-15 09:15] VITALS: BP 125/70
[2025-03-15 10:38] VITALS: PULSE 103
== END 2025-03-15 12:55 | disposition home or self-care (01) | DRG 195 ==
LOC: FER 13:49 → FM/S 18:19 → OBSVTOIN 22:50
DX: J18.9 Pneumonia, unspecified organism (principal); J45.909 Unspecified asthma, uncomplicated; E66.9 Obesity, unspecified; Z68.35 Body mass index [BMI] 35.0-35.9, adult
CPT/HCPCS: 36415; 71046-TC-FY; 71275-TC; 80048; 80053; 82803; 83735; 83880; 84484; 85025; 85379; 85610; 85730; 86803; 87389; 87637-QW; 87899; 93005; 93308; 94640; 99291; G0378; Q9967